=== PATIENT | male | born 1975 | race Two or more races ===

== ENCOUNTER 2018-04-22 08:09 | Emergency (ER) | payer OTHER ==
[2018-04-22 08:14] VITALS: BMI 36.2
[2018-04-22] MEDS ORDERED: HYDROmorphone 1 mg/ml ISec IVP STA ×2 (08:30→10:10)
[2018-04-22 08:31] VITALS: RESP 18
--- NOTE | 2018-04-22 08:32 | ED PDOC ---
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 Patient states he came home around 5:30 am and lied down to sleep and felt intense sharp pain 10/10 located in his flank area. He also had an episode of vomiting. Patient denies chest pain, difficulty urinating , SOB, fever, chills, or any other complaints at this time. 04/22/18 08:34 (Pedro Sanchez) Past Medical History - Provider Review Nursing Documentation Reviewed: Yes - Infectious Disease Hx of Infectious Diseases: None - Psychiatric Hx Substance Use: No <Pedro Sanchez - Last Filed: 04/22/18 14:08> - Travel History Have you recently traveled outside [place] w/in the past 3 mons?: No - Past History Past History: No Previous <Roberth Roberts - Last Filed: 04/22/18 15:08> Family/Social History - Physician Review Nursing Documentation Reviewed: Yes Family/Social History: No Known Family HX Smoking Status: Never Smoked Hx Alcohol Use: Yes Frequency of alcohol use: Socially Hx Substance Use: No <Pedro Sanchez - Last Filed: 04/22/18 14:08> Hx Substance Use Treatment: No <Roberth Roberts - Last Filed: 04/22/18 15:08> Allergies/Home Meds <Pedro Sanchez - Last Filed: 04/22/18 14:08> <Roberth Roberts - Last Filed: 04/22/18 15:08> Allergies/Adverse Reactions: Allergies No Known Allergies Allergy (Verified 04/22/18 08:14) Review of Systems - Review of Systems Constitutional: Normal Eyes: Normal ENT: Normal Respiratory: Normal Cardiovascular: Normal Gastrointestinal: Abdominal Pain, Nausea, Vomiting. absent: Diarrhea Genitourinary Male: Urinary Output Changes. absent: Frequency, Hematuria Musculoskeletal: Normal Skin: Normal Neurological: Normal Endocrine: Normal Hemo/Lymphatic: Normal Psychiatric: Normal <Pedro Sanchez - Last Filed: 04/22/18 14:08> Physical Exam Temperature: Afebrile Blood Pressure: Hypertensive Pulse: Regular Respiratory Rate: Normal Appearance: Positive for: Other (distress). No: Comfortable Mental Status: Positive for: Alert and Oriented X 3 <Pedro Sanchez - Last Filed: 04/22/18 14:08> Appearance: Positive for: Well-Appearing Pain Distress: Severe <Roberth Roberts - Last Filed: 04/22/18 15:08> - Physical Exam Narrative Physical Exam (Text): 04/22/18 0900 General: alert/awake, GCS = 15, oriented x 3, resting in bed, uncomfortable, cooperative, interactive; severe distress due to pain Head: NC/AT EYE: PERRLA, EOMI, sclera anicteric, no nystagmus, no photophobia; wearing eye glasses Facial: WNL Oral: uvula/tongue are midline, no exudate/lesions, no drooling/stridor, no dysphonia; intact dentitions; mild dry oral mucosa NECK: intact ROM, no midline tenderness, no nuchal rigidity, no meningeal signs ; no step off Chest: CTA b/l, no w/r/r; no tachypenia, no accessory muscle use noted Chest Wall: no focal tenderness, no gross deformities, no crepitus, no lesions/ rashes noted Cardiac: +S1, +S2, no m/r/r, no tachycardia Abdominal: +BS, soft/nd/nt, well nourished patient; no masses/rebound/guarding/ rigidity; no subramanian's sign, no mcburney's point tenderness Extremities: intact ROM, strength 5/5 grossly intact in all limbs, neurovasc intact b/l; + ambulatory; reflex +2/2; no pitting edema/swelling, no yamileth's sign BACK: no step off, no midline tenderness, NO crepitus, no gross deformities noted; Intact ROM; + left CVAT SKIN: cap refill ~ 1 sec, no ulcerations, no petechiae, no rashes; mild diaphoresis noted NEURO: CNII-XII WNL, no facial asymmetries, no slurr speech, oriented x 3 NIH stroke scale ~ 0 Psych: normal insight, normal affect; follows command with ease (Roberth Roberts) Vital Signs Temp Pulse Resp BP Pulse Ox 04/22/18 14:16 98.4 F 84 138/80 97 04/22/18 10:52 81 18 126/76 96 04/22/18 08:30 97.9 F 82 18 155/110 H 99 Medical Decision Making - Lab Interpretations I have reviewed the lab results: Yes <Pedro Sanchez - Last Filed: 04/22/18 14:08> Re-evaluation Time: 12:00 Reassessment Condition: Improving,but remains with symptoms - Lab Interpretations Interpretation: Abnormal lab values (+ urine RBC) - RAD Interpretation Electrical Project Manager: Radiologist <Roberth Robrets - Last Filed: 04/22/18 15:08> ED Course and Treatment: Plan -dilaudid, toradol -Ct abdomen/pelvis -US, Urine cultures -zofran, pepcid, fluids -lipase -VBG -reasses 04/22/18 08:[address] scan, stating pain has improved since medication 04/22/18 09:06 CT abdomen/pelvis showing 3mm stone at left UVJ. Mild left sided hydronephrosis 04/22/18 09:40 Patient will be transferred due to request by his [employer], waiting for accepting physician to call back from [facility] 04/22/18 12:54 Patient made aware by [employer] that his expenses will not be all covered because he is an citizen here for work on the [employer]. Patient therefore wants to return [facility] for follow up. 04/22/18 13:55 (Pedro Sanchez) A 43 year old male with left sided abdominal/flank pain. In agreement with resident note, which includes further HPI details. Patient was seen and evaluated with resident, came up with plan and treatment together. I performed the hx and physical exam of the patient and discussed their mgt with the RESIDENT. I reviewed the RESIDENT's NOTE and agree with the assessment and plan of care. 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 for further outpt f/u, evaluation; pt would like to stay spoke to pt's case management assistant who states patient does not have insurance and it will be out of pocket for patient; pt is made aware, and decided now he is feeling better and would like to be released home pt is made aware of his medical results pt is encouraged continue hydration pt will f/u as directed pt will be discharged home (Roberth Roberts) - Lab Interpretations Lab Results: 04/22/18 08:47 04/22/18 08:47 Lab Results 04/22/18 10:20: pO2 40, VBG pH 7.29 L, VBG pCO2 60.0, VBG HCO3 28.9 H, VBG O2 Sat (Calc) 78.5 H, VBG Base Excess 0.9 04/22/18 08:47: Sodium 143, Potassium 4.0, Chloride 101, Carbon Dioxide 27, Anion Gap 19, BUN 18, Creatinine 1.1, Est GFR ( Amer) > 60, Est GFR (Non- Af Amer) > 60, Random Glucose 145 H, Calcium 9.8, Total Bilirubin 0.4, Direct Bilirubin 0.1, AST 50, ALT 66 H, Alkaline Phosphatase 81, Total Protein 8.7 H, Albumin 5.1 H, Globulin 3.6, Albumin/Globulin Ratio 1.4, Lipase 131 04/22/18 08:47: WBC 11.1 H, RBC 5.16, Hgb 15.6, Hct 45.1, MCV 87.4, MCH 30.2, MCHC 34.6, RDW 12.9, Plt Count 227, MPV 10.2, Gran % 73.5 H, Lymph % (Auto) 19.2 L, Coryell % (Auto) 6.0, Eos % (Auto) 0.9 L, Baso % (Auto) 0.4, Gran # 8.17 H , Lymph # (Auto) 2.1, Coryell # (Auto) 0.7 H, Eos # (Auto) 0.1, Baso # (Auto) 0.05 04/22/18 08:47: Urine Color Yellow, Urine Appearance Clear, Urine pH 6.0, Ur Specific Asher >= 1.030, Urine Protein 100 H, Urine Glucose (UA) Negative, Urine Ketones Negative, Urine Blood Large H, Urine Nitrate Negative, Urine Bilirubin Negative, Urine Urobilinogen 0.2, Ur Leukocyte Esterase Negative, Urine RBC Tntc, Urine WBC 1 - 3, Ur Epithelial Cells None, Amorphous Sediment Few, Urine Bacteria Many, Coarse Granular Casts Trace H - RAD Interpretation Narrative RAD Interpretations (Text): 04/22/18 15:04 PROCEDURE: CT Abdomen and Pelvis without intravenous contrast HISTORY: kidney stone, abdominal pain COMPARISON: None. TECHNIQUE: Without contrast. Contrast dose: Radiation dose: Total exam DLP = 1137 mGy-cm. This CT exam was performed using one or more of the following dose reduction techniques: Automated exposure control, adjustment of the mA and/or kV according to patient size, and/or use of iterative reconstruction technique. FINDINGS: LOWER THORAX: Unremarkable. LIVER: Unremarkable. No gross lesion or ductal dilatation. GALLBLADDER AND BILE DUCTS: Unremarkable. PANCREAS: Unremarkable. No gross lesion or ductal dilatation. SPLEEN: Unremarkable. ADRENALS: Unremarkable. No mass. KIDNEYS AND URETERS: There is a 3 mm stone at the left UVJ. There is mild left-sided hydronephrosis VASCULATURE: Unremarkable. No aortic aneurysm. BOWEL: Unremarkable. No obstruction. No gross mural thickening. APPENDIX: Unremarkable. Normal appendix. PERITONEUM: Unremarkable. No free fluid. No free air. LYMPH NODES: Unremarkable. No enlarged lymph nodes. BLADDER: Unremarkable. REPRODUCTIVE: Unremarkable. BONES: No acute fracture. OTHER FINDINGS: None. IMPRESSION: There is a 3 mm stone at the left UVJ. There is mild left-sided hydronephrosis ( Roberth Roberts) Radiology Orders: 04/22/18 08:30 ABDOMEN & PELVIS [ABD & PELVIS W/O PO OR IV CONT] [CT] Stat - Medication Orders Current Medication Orders: Discontinued Medications Famotidine (Pepcid) 40 mg PO STAT STA Stop: 04/22/18 08:40 Last Admin: 04/22/18 09:02 Dose: 40 mg Hydromorphone HCl (Dilaudid) 2 mg IVP STAT STA Stop: 04/22/18 08:31 Last Admin: 04/22/18 08:35 Dose: 2 mg MAR Pain Assessment Document 04/22/18 08:35 SRE (Rec: 04/22/18 08:36 SRE [id number]) Pain Reassessment Is this a pain reassessment? Yes Sleep Is patient sleeping during reassessment? No Presence of Pain Presence of Pain Yes Pain Scale Used Pain Scale Used Numeric Location Left, Right or Bilateral Left Pain Location Body Site Abdomen Description Description Constant IVP Administration Document 04/22/18 08:35 SRE (Rec: 04/22/18 08:36 SRE [id number]) Charges for Administration # of IVP Administrations 2 Re-Assess: MAR Pain Assessment Document 04/22/18 09:35 SRE (Rec: 04/22/18 10:26 SRE [id number]) Pain Reassessment Is this a pain reassessment? Yes Hydromorphone HCl (Dilaudid) 1 mg IVP STAT STA Stop: 04/22/18 10:11 Last Admin: 04/22/18 10:24 Dose: 1 mg MAR Pain Assessment Document 04/22/18 10:24 SRE (Rec: 04/22/18 10:24 SRE [id number]) Pain Reassessment Is this a pain reassessment? Yes Sleep Is patient sleeping during reassessment? No Presence of Pain Presence of Pain Yes Pain Scale Used Pain Scale Used Numeric Location Left, Right or Bilateral Left Pain Location Body Site Abdomen IVP Administration Document 04/22/18 10:24 SRE (Rec: 04/22/18 10:24 SRE [id number]) Charges for Administration # of IVP Administrations 1 Sodium Chloride (Sodium Chloride 0.9%) 500 mls @ 999 mls/hr IV .Q31M STA Stop: 04/22/18 09:29 Last Admin: 04/22/18 09:02 Dose: 999 mls/hr eMAR Start Stop Document 04/22/18 09:02 SRE (Rec: 04/22/18 09:03 SRE [id number]) Intravenous Solution Start Date 04/22/18 Start Time 09:00 End Date 04/22/18 End time 09:30 Total Infusion Time 30 Sodium Chloride (Sodium Chloride 0.9%) 500 mls @ 999 mls/hr IV .Q31M STA Stop: 04/22/18 10:40 Last Admin: 04/22/18 10:26 Dose: 999 mls/hr eMAR Start Stop Document 04/22/18 10:26 SRE (Rec: 04/22/18 10:26 SRE [id number]) Intravenous Solution Start Date 04/22/18 Start Time 10:26 End Date 06/08/18 End time 10:55 Total Infusion Time 29 Ketorolac Tromethamine (Toradol) 30 mg IVP STAT STA Stop: 04/22/18 08:34 Last Admin: 04/22/18 08:41 Dose: 30 mg MAR Pain Assessment Document 04/22/18 08:41 SRE (Rec: 04/22/18 08:42 SRE [id number]) Pain Reassessment Is this a pain reassessment? Yes Sleep Is patient sleeping during reassessment? No Presence of Pain Presence of Pain Yes Pain Scale Used Pain Scale Used Numeric Location Left, Right or Bilateral Left Pain Location Body Site Abdomen IVP Administration Document 04/22/18 08:41 SRE (Rec: 04/22/18 08:42 SRE [id number]) Charges for Administration # of IVP Administrations 1 Re-Assess: [facility] Pain Assessment Document 04/22/18 09:41 SRE (Rec: 04/22/18 10:26 SRE [id number]) Pain Reassessment Is this a pain reassessment? Yes Ondansetron HCl (Zofran Inj) 4 mg IVP STAT STA Stop: 04/22/18 08:40 Last Admin: 04/22/18 09:02 Dose: 4 mg IVP Administration Document 04/22/18 09:02 SRE (Rec: 04/22/18 09:02 SRE [id number]) Charges for Administration # of IVP Administrations 1 - PA / TRANSIT OPERATIONS SUPERVISOR / Resident Statement / has reviewed & agrees with the documentation as recorded. / has examined the patient and agrees with the treatment plan. <Roberth Roberts - Last Filed: 04/22/18 15:08> Disposition/Present on Arrival - Present on Arrival Any Indicators Present on Arrival: No History of DVT/PE: No History of Uncontrolled Diabetes: No Urinary Catheter: No History of Decub. Ulcer: No History Surgical Site Infection Following: None - Disposition Have Diagnosis and Disposition been Completed?: Yes Disposition Time: 13:59 <Pedro Sanchez - Last Filed: 04/22/18 14:08> <Roberth Roberts - Last Filed: 04/22/18 15:08> - Disposition Diagnosis: Kidney stone, Kidney stone on left side Disposition: HOME/ ROUTINE Condition: STABLE Discharge Instructions (ExitCare): Kidney Stones in Adults, Flank Pain (DC) Print Language: SLOVENIAN Additional Instructions: Make sure to see your doctor in 1-2 days DRINK PLENTY OF FLUIDS take your medications as prescribed RETURN TO ED IF worse pain, cant breath, persistent vomiting, high fever >101- 102 for hours, altered behavior, slurr speech, facial changes, focal weakness ( arm/leg or both), unable to urinate, heavy/persistent bleeding, passing out, chest pain, or other medical emergencies Prescriptions: Ibuprofen [Motrin] 600 mg PO QID PRN #30 tab PRN Reason: Pain, Mild (1-3) Ondansetron ODT [Zofran ODT] 4 mg PO TID PRN #12 odt PRN Reason: Nausea/Vomiting oxyCODONE/Acetaminophen [Percocet 5/325 mg Tab] 1 - 2 tab PO TID PRN #15 tab PRN Reason: Pain, Moderate (4-7) Tamsulosin HCl [Flomax] 0.4 mg PO DAILY #7 cap.er.24h Referrals: [facility] [Outside] - Follow up with primary Kim[facility]Phe[facility] Ren [Outside] - Follow up with primary [facility] [Outside] - Follow up with primary Elton Malin MD [Staff Provider] - Follow up with primary Forms: [facility]he[facility] June (Nepalese), WORK NOTE
[2018-04-22 08:51] LABS: BASO # 0.05 K/mm3 (0.0-2.0); BASO % 0.4 % (0.0-3.0); EOS # 0.1 (0.0-0.7); EOS % 0.9 % (1.5-5.0); GRAN # 8.17 (1.4-6.5); GRAN % 73.5 % (50.0-68.0); HEMOGLOBIN 15.6 g/dL (14.0-18.0); LYMPH # 2.1 (1.2-3.4); LYMPH % 19.2 % (22.0-35.0); MEAN CELL VOLUME 87.4 fl (80.0-105.0); MEAN CORPUSCULAR HEMOGLOBIN 30.2 pg (25.0-35.0); MEAN CORPUSCULAR HGB CONC 34.6 g/dl (31.0-37.0); MEAN PLATELET VOLUME 10.2 fl (7.0-11.0); MONO # 0.7 (0.1-0.6); RBC 5.16 10^6/uL (3.5-6.1); RED CELL DISTRIBUTION WIDTH 12.9 % (11.5-14.5); WHITE BLOOD COUNT 11.1 10^3/ul (4.5-11.0)
[2018-04-22] MEDS ORDERED: Sodium Chloride 0.9% 500 ML IV STA ×2 (08:59→10:10)
[2018-04-22 09:03] LABS: ALB/GLOB RATIO 1.4 (1.1-1.8); ALBUMIN 5.1 g/dL (3.0-4.8); ALT/SGPT 66 U/L (7-56); AST/SGOT 50 U/L (17-59); BILIRUBIN,DIRECT 0.1 mg/dL (0.0-0.4); BLOOD UREA NITROGEN 18 mg/dL (7-21); CALCIUM 9.8 mg/dL (8.4-10.5); GFR AFRICAN-AMERICAN > 60; GFR NON-AFRICAN AMERICAN > 60; LIPASE 131 U/L (23-300)
[2018-04-22 09:07] LABS: URINE BILIRUBIN NEGATIVE (NEGATIVE); URINE BLOOD LARGE (NEGATIVE); URINE GLUCOSE (UA) NEGATIVE (NEGATIVE); URINE LEUKOCYTE ESTERASE NEGATIVE Leu/uL (NEGATIVE); URINE PROTEIN 100 mg/dL (<30 mg/dL); URINE UROBILINOGEN 0.2 E.U./dL (<1 E.U./dL)
[2018-04-22 09:14] LABS: URINE APPEARANCE CLEAR (CLEAR); URINE COLOR YELLOW (YELLOW)
--- NOTE | 2018-04-22 09:31 | CT ---
PROCEDURE: CT Abdomen and Pelvis without intravenous contrast HISTORY: kidney stone, abdominal pain COMPARISON: None. TECHNIQUE: Without contrast. Contrast dose: Radiation dose: Total exam DLP = 1137 mGy-cm. This CT exam was performed using one or more of the following dose reduction techniques: Automated exposure control, adjustment of the mA and/or kV according to patient size, and/or use of iterative reconstruction technique. FINDINGS: LOWER THORAX: Unremarkable. LIVER: Unremarkable. No gross lesion or ductal dilatation. GALLBLADDER AND BILE DUCTS: Unremarkable. PANCREAS: Unremarkable. No gross lesion or ductal dilatation. SPLEEN: Unremarkable. ADRENALS: Unremarkable. No mass. KIDNEYS AND URETERS: There is a 3 mm stone at the left UVJ. There is mild left-sided hydronephrosis VASCULATURE: Unremarkable. No aortic aneurysm. BOWEL: Unremarkable. No obstruction. No gross mural thickening. APPENDIX: Unremarkable. Normal appendix. PERITONEUM: Unremarkable. No free fluid. No free air. LYMPH NODES: Unremarkable. No enlarged lymph nodes. BLADDER: Unremarkable. REPRODUCTIVE: Unremarkable. BONES: No acute fracture. OTHER FINDINGS: None. IMPRESSION: There is a 3 mm stone at the left UVJ. There is mild left-sided hydronephrosis
[2018-04-22 10:06] LABS: URINE BACTERIA MANY (NEG); URINE RBC TNTC /hpf (0-2)
[2018-04-22 10:07] LABS: URINE AMORPHOUS SEDIMENT FEW; URINE COARSE GRANULAR CAST TRACE /hpf (0-2)
[2018-04-22 10:35] LABS: VENOUS BLOOD GAS BASE EXCESS 0.9 mmol/L (0.0-2.0); VENOUS BLOOD GAS PO2 40 mm/Hg (30-55); VENOUS BLOOD PH 7.29 (7.32-7.43)
[2018-04-22 14:17] VITALS: BP 138/80; PULSE 84; TEMP 98.4; O2SAT 97
== END 2018-04-22 14:14 | disposition home or self-care (01) ==
LOC: ED 08:09
DX: N20.0 Calculus of kidney (principal)
CPT/HCPCS: 74176; 80053; 81001; 82248; 82803; 83690; 85025; 87086; 96374; 96375; 96376; 99284; J1170; J1885; J2405; J7040